=== PATIENT | female | born 1935 | race Caucasian/White ===

== ENCOUNTER 2023-05-21 13:52 | Emergency (ER) | payer MEDICARE ==
[2023-05-21 14:03] VITALS: RESP 18; TEMP 97.6
--- NOTE | 2023-05-21 14:23 | ED ---
Extremity Problem HPI - General Chief complaint: Extremity Injury, Lower Stated complaint: L Leg Swollen, poss infection Time Seen by Provider: 05/21/23 14:09 Source: patient, family, RN notes reviewed Mode of arrival: wheelchair Limitations: no limitations - History of Present Illness Initial comments: This is an 87-year-old female who presents to the emergency department for left lower extremity pain, swelling, and redness. Her daughter states that she has mild dementia and is providing most of the history. States that the top of her left foot yesterday was red, and today the redness started to travel up the leg. She has not had any fevers or injuries. Her daughter is unsure if she has a history of infection, as the patient just moved to this area. Patient states that the leg is painful. Denies any known history of DVTs and she is not on any blood thinners. Denies any fevers, chills, sore throat, cough, dyspnea, chest pain, palpitations, abdominal pain, nausea, vomiting, diarrhea, back pain, or headaches. MD Complaint: extremity pain, extremity swelling Onset/Timin -: days(s) Location: left, lower extremity - Related Data Home Medications Medication Instructions Recorded Confirmed ALPRAZolam [Xanax] 0.5 mg PO HS 05/21/23 05/21/23 Donepezil [Aricept] 10 mg PO DAILY 05/21/23 05/21/23 Doxepin HCl 3 mg PO HS PRN 05/21/23 05/21/23 Ezetimibe [Zetia] 10 mg PO DAILY 05/21/23 05/21/23 Losartan [Cozaar] 50 mg PO DAILY 05/21/23 05/21/23 Pregabalin [Lyrica] 50 mg PO BID 05/21/23 05/21/23 QUEtiapine [SEROquel] 25 mg PO HS 05/21/23 05/21/23 QUEtiapine [SEROquel] 50 mg PO HS 05/21/23 05/21/23 carBAMazepine 200 mg PO TID 05/21/23 05/21/23 hydroCHLOROthiazide [Hydrodiuril] 25 mg PO DAILY 05/21/23 05/21/23 sitaGLIPtin [Januvia] 100 mg PO DAILY 05/21/23 05/21/23 Previous Rx's Medication Instructions Recorded Cephalexin [Keflex] 500 mg PO Q6HR 7 Days #28 cap 05/21/23 Allergies Allergy/AdvReac Type Severity Reaction Status Date / Time erythromycin base Allergy Rash/Hives Verified 05/21/23 15:54 rivera Allergy Unknown Verified 05/21/23 15:54 Penicillins Allergy Rash/Hives Verified 05/21/23 15:54 pollen extracts Allergy Wheezing Verified 05/21/23 15:54 Sulfa (Sulfonamide Allergy Rash/Hives Verified 05/21/23 15:54 Antibiotics) Review of Systems ROS Statement: Those systems with pertinent positive or pertinent negative responses have been documented in the HPI. ROS Other: All systems not noted in ROS Statement are negative. Past Medical History Past Medical History: Coronary Artery Disease (CAD), Chest Pain / Angina, Heart Failure, Dementia, Diabetes Mellitus, Hyperlipidemia, Hypertension, Osteoarthritis (OA) Additional Past Medical History / Comment(s): scoliosis History of Any Multi-Drug Resistant Organisms: None Reported Past Surgical History: Hysterectomy, Pacemaker Past Psychological History: No Psychological Hx Reported Smoking Status: Never smoker Past Alcohol Use History: None Reported Past Drug Use History: None Reported General Exam Limitations: no limitations General appearance: alert, in no apparent distress Head exam: Present: atraumatic, normocephalic, normal inspection Respiratory exam: Present: normal lung sounds bilaterally. Absent: respiratory distress, wheezes, rales, rhonchi, stridor Cardiovascular Exam: Present: regular rate, normal rhythm, normal heart sounds. Absent: systolic murmur, diastolic murmur, rubs, gallop, clicks Extremities exam: Present: other (Tenderness, erythema, and swelling to the dorsal aspect of the left foot spreading proximally and terminating inferior to the left patella. Calf tenderness. 2+ DP and PT pulses.) Neurological exam: Present: alert, oriented X3, CN II-XII intact Psychiatric exam: Present: normal affect, normal mood Course Vital Signs 05/21/23 05/21/23 13:57 17:31 Temperature 97.6 F Pulse Rate 80 82 Respiratory 18 18 Rate Blood Pressure 155/80 164/94 O2 Sat by Pulse 94 L 93 L Oximetry Medical Decision Making - Medical Decision Making This is an 87-year-old female who presents to the emergency department for left leg pain and redness. Was pt. sent in by a medical professional or institution? @ -No Did you speak to anyone other than the patient for history? @ -No Did you review nursing and triage notes? @ -Yes, and I agree, it is accurate with regards to the patient's symptoms. Were old charts reviewed? @ -No Differential Diagnosis? @ -Differential Leg Pain: Leg fracture, leg sprain, DVT, PVD, arterial insufficiency, iliac artery aneurysm, cellulitis, compartment syndrome, tendinopathy, nerve entrapment, piriformis syndrome, osteoarthritis, rhabdomyolysis, myositis, cramping from an electrolyte imbalance, this is not meant to be an all inclusive list. EKG interpreted by me (3pts min.)? @ -Not obtained X-rays interpreted by me (1pt min.)? @ -X-ray of the left foot and tib-fib were obtained. My interpretation identifies no evidence of subcutaneous gas formation. CT interpreted by me (1pt min.)? @ -Not obtained U/S interpreted by me (1pt. min.)? @ -Duplex US of the left lower extremity obtained. My interpretation identifies no evidence of a DVT. What testing was considered but not performed? (CT, X-rays, U/S, labs)? Why? @ -None What meds were considered but not given? Why? @ -None Did you discuss the management of the patient with other professionals? @ -No Did you reconcile home meds? @ -No Was smoking cessation discussed for >3mins.? @ -No Was critical care preformed (if so, how long)? @ -No Were there social determinants of health that impacted care today? How? (Homelessness, low income, unemployed, alcoholism, drug addiction, transportation, low edu. Level, literacy, decrease access to med. care, prison, rehab)? @ -No Was there de-escalation of care discussed even if they declined? (Discuss DNR or withdrawal of care, Hospice)? @ -No What co-morbidities impacted this encounter? (DM, HTN, Smoking, COPD, CAD, Cancer, CVA, Hep., AIDS, mental health diagnosis, sleep apnea, morbid obesity)? @ -CAD, DM, dementia Was patient admitted / discharged? @ -Discharged. Lab work obtained revealing no evidence of leukocytosis. She does have apparent hyponatremia without prior values for comparison. CRP is also mildly elevated at 2.5. Duplex ultrasound obtained revealing no evidence of a DVT. There does appear to be a large Potter's cyst, however the patient is not having any pain in the back of the left knee. X-rays obtained as well revealing soft tissue swelling at the foot without evidence of any other acute process. Given that she does have progressive erythema with increased heat and pain, we'll treat the patient for cellulitis. Prescription for Keflex provided with dosing instructions reviewed. Otherwise advised close follow-up with her primary care provider for reevaluation as well as repeat blood work with regards to the hyponatremia. Undiagnosed new problem with uncertain prognosis? @ -None Drug Therapy requiring intensive monitoring for toxicity (Heparin, Nitro, Insulin, Cardizem)? @ -None Were any procedures done? @ -None Diagnosis/symptom? @ -LLE cellulitis, hyponatremia Acute, or Chronic, or Acute on Chronic? @ -Acute Uncomplicated (without systemic symptoms) or Complicated (systemic symptoms)? @ -Uncomplicated Side effects of treatment? @ -None Exacerbation, Progression, or Severe Exacerbation] @ -Not applicable Poses a threat to life or bodily function? @ -No Return precautions reviewed in depth, the patient is instructed to return to the emergency department with any new, worsening, or concerning symptoms. Patient verbalized understanding. This case was discussed in detail with the attending ED physician, Dr. Kelley. Presentation, findings, and treatment plan discussed in detail as well. - Lab Data Result diagrams: 05/21/23 16:05 05/21/23 16:05 Lab Results 05/21/23 05/21/23 05/21/23 Range/Units 16:05 16:05 16:05 WBC 9.8 (3.8-10.6) k/uL RBC 4.67 (3.80-5.40) m/uL Hgb 14.3 (11.4-16.0) gm/dL Hct 41.3 (34.0-46.0) % MCV 88.4 (80.0-100.0) fL MCH 30.6 (25.0-35.0) pg MCHC 34.6 (31.0-37.0) g/dL RDW 12.1 (11.5-15.5) % Plt Count 289 (150-450) k/uL MPV 7.3 Neutrophils % 57 % Lymphocytes % 30 % Monocytes % 8 % Eosinophils % 2 % Basophils % 0 % Neutrophils # 5.6 (1.3-7.7) k/uL Lymphocytes # 2.9 (1.0-4.8) k/uL Monocytes # 0.8 (0-1.0) k/uL Eosinophils # 0.2 (0-0.7) k/uL Basophils # 0.0 (0-0.2) k/uL Sodium 127 L (137-145) mmol/L Potassium 3.4 L (3.5-5.1) mmol/L Chloride 85 L (98-107) mmol/L Carbon Dioxide 34 H (22-30) mmol/L Anion Gap 8 mmol/L BUN 13 (7-17) mg/dL Creatinine 0.50 L (0.52-1.04) mg/dL Est GFR (CKD-EPI)AfAm >90 (>60 ml/min/1.73 sqM) Est GFR (CKD-EPI)NonAf 87 (>60 ml/min/1.73 sqM) Glucose 167 H (74-99) mg/dL Plasma Lactic Acid Louis 1.5 (0.7-2.0) mmol/L Calcium 9.2 (8.4-10.2) mg/dL Total Bilirubin 0.4 (0.2-1.3) mg/dL AST 23 (14-36) U/L ALT 15 (4-34) U/L Alkaline Phosphatase 129 H (38-126) U/L C-Reactive Protein 2.5 H (<1.0) mg/dL Total Protein 7.1 (6.3-8.2) g/dL Albumin 4.0 (3.5-5.0) g/dL - Radiology Data Radiology results: report reviewed, image reviewed Disposition Clinical Impression: Left leg cellulitis, Hyponatremia Disposition: HOME SELF-CARE Instructions (If sedation given, give patient instructions): Cellulitis (ED) Additional Instructions: Return to the emergency department with any new, worsening, or concerning sym ptoms. Take the antibiotics as prescribed for 7 days. Follow up with your primary care provider in 1-2 days. Prescriptions: Cephalexin [Keflex] 500 mg PO Q6HR 7 Days #28 cap Is patient prescribed a controlled substance at d/c from ED?: No Referrals: None,Stated [Primary Care Provider] - 1-2 days
--- NOTE | 2023-05-21 16:17 | XR ---
EXAMINATION TYPE: XR tibia fibula LT DATE OF EXAM: 05/21/2023 COMPARISON: None HISTORY: Leg pain and swelling TECHNIQUE: 2 view left tibia and fibula FINDINGS: Mild soft tissue swelling is at the ankle. There is loss of joint space in the mediolateral compartments of the knee. Patellofemoral joint space narrowing is present. No joint effusion is iden tified. No acute fracture or dislocation is evident. IMPRESSION: 1. No acute osseous abnormality left tibia and fibula. 2. 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 3. Mild soft tissue swelling over the left ankle.
[2023-05-21 16:23] LABS: Basophils % (A) 0 %; Eosinophils # (A) 0.2 k/uL (0-0.7); Eosinophils % (A) 2 %; HCT 41.3 % (34.0-46.0); HGB 14.3 gm/dL (11.4-16.0); Lymphocytes # (A) 2.9 k/uL (1.0-4.8); Lymphocytes % (A) 30 %; MCH 30.6 pg (25.0-35.0); MCHC 34.6 g/dL (31.0-37.0); MCV 88.4 fL (80.0-100.0); Mean Platelet Volume 7.3; Monocytes # (A) 0.8 k/uL (0-1.0); Monocytes % (A) 8 %; Neutrophils # (A) 5.6 k/uL (1.3-7.7); Neutrophils % (A) 57 %; Platelet Count 289 k/uL (150-450); RBC 4.67 m/uL (3.80-5.40); RDW 12.1 % (11.5-15.5); WBC 9.8 k/uL (3.8-10.6)
--- NOTE | 2023-05-21 16:26 | XR ---
EXAMINATION TYPE: XR foot complete LT DATE OF EXAM: 05/21/2023 COMPARISON: None HISTORY: Leg pain and swelling TECHNIQUE: 3 view left foot FINDINGS: Diffuse soft tissue swelling is present. Greater at the ankle No acute fracture or dislocation is evident. Small plantar calcaneal heel spur is present. Joint spac es are preserved. IMPRESSION: 1. No acute osseous abnormality left foot. 2. Diffuse soft tissue swelling.
[2023-05-21 16:35] LABS: ALT 15 U/L (4-34); AST 23 U/L (14-36); African American GFR (CKD) >90 (>60 ml/min/1.73 sqM); Alkaline Phosphatase 129 U/L (38-126); Anion Gap 8 mmol/L; Blood Urea Nitrogen 13 mg/dL (7-17); C Reactive Protein 2.5 mg/dL (<1.0); Calcium 9.2 mg/dL (8.4-10.2); Carbon Dioxide 34 mmol/L (22-30); Chloride 85 mmol/L (98-107); Glucose 167 mg/dL (74-99); Non-African American GFR(CKD) 87 (>60 ml/min/1.73 sqM); Potassium 3.4 mmol/L (3.5-5.1); Sodium 127 mmol/L (137-145); Total Bilirubin 0.4 mg/dL (0.2-1.3); Total Protein 7.1 g/dL (6.3-8.2)
--- NOTE | 2023-05-21 16:53 | US ---
EXAMINATION TYPE: US venous doppler duplex LE LT DATE OF EXAM: 05/21/2023 4:28 PM COMPARISON: NONE CLINICAL INDICATION: Female, 87 years old with history of Left leg pain and swelling; Left leg pain a nd swelling. SIDE PERFORMED: Left TECHNIQUE: The lower extremity deep venous system is examined utilizing real time linear array sonog shilpa with graded compression, doppler sonography and color-flow sonography. VESSELS IMAGED: Common Femoral Vein Deep Femoral Vein Greater Saphenous Vein * Femoral Vein Popliteal Vein Small Saphenous Vein * Proximal Calf Veins (* superficial vessels) Left Leg: Appears negative for DVT. Complex fluid collection seen posterior knee = 5.6 x 3.6 x 2.5 cm IMPRESSION: 1. No evidence for deep vein thrombosis of the left lower chimney. 2. Complicated popliteal fossa cyst
[2023-05-21] MEDS ORDERED: CEPHALEXIN 500MG STARTER PACK 4 CAP BTL PO STA (17:07)
[2023-05-21 17:33] VITALS: BP 164/94; PULSE 82
== END 2023-05-21 17:33 | disposition home or self-care (01) ==
LOC: EC 13:52
DX: M79.662 Pain in left lower leg (principal); E87.1 Hypo-osmolality and hyponatremia; I11.0 Hypertensive heart disease with heart failure; I50.9 Heart failure, unspecified; E11.9 Type 2 diabetes mellitus without complications; E78.5 Hyperlipidemia, unspecified; M19.90 Unspecified osteoarthritis, unspecified site; I25.10 Atherosclerotic heart disease of native coronary artery without angina pectoris; Z79.899 Other long term (current) drug therapy; Z88.8 Allergy status to other drugs, medicaments and biological substances; Z88.0 Allergy status to penicillin; Z88.2 Allergy status to sulfonamides
CPT/HCPCS: 36415; 80053; 83605; 85025; 86140; 99284